=== PATIENT | male | born 1950 | race Caucasian/White ===

== ENCOUNTER 2024-10-19 06:53 | Emergency (ER) | payer MEDICARE, OTHER, SELFPAY ==
[2024-10-19 06:55] VITALS: BP 160/73; PULSE 50; RESP 16; TEMP 36.9; O2SAT 100; BMI 27.1
[2024-10-19 06:58] VITALS: O2SAT 98
--- NOTE | 2024-10-19 07:09 | CT_ITS ---
PROCEDURE: SPINE CERVICAL WITHOUT CONTRAS 10/19/2024 REASON FOR EXAM: FALL TECHNIQUE: Cervical spine CT without contrast. Coronal and Sagittal reconstruction series were provided. One or more dose reduction techniques were used (e.g., Automated exposure control, adjustment of the mA and/or kV according to patient size, use of iterative reconstruction technique COMPARISON: None FINDINGS: Alignment: Straightening of the cervical lordosis. Grade 1 anterolisthesis C5 on C6. Atlantoaxial interval is maintained. Vertebrae: Vertebral body heights are maintained. Mild multilevel loss of disc spaces throughout the cervical spine. Nondisplaced acute-subacute transverse fracture, involving the left lamina at C6 (series 5, image 86, series 602, image 42). Additionally, there is a mildly displaced acute-subacute comminuted fracture of the left C7 transverse foramina and pedicle (series 5 images 91-97). Hyperdensity along the ventral epidural space at C5-C6 (series 6, image 87, series 602, image 33), is indeterminate, but may represent hematoma in the setting of recent fractures. Multilevel degenerative changes, with up to moderate canal stenosis and severe neural foraminal narrowing, most prominent at C6-C7. Soft Tissues: Soft tissues of the neck are within normal limits. CT/Spine Cervical without Contras IMPRESSION: 1. Nondisplaced-mildly displaced acute-subacute fractures of the left C6 lamina and left C7 transverse foramina and pedicle. 2. Hyperdensity at the ventral epidural space at C5-C6, concerning for ventral epidural hematoma. Recommend further evaluation with MRI of the cervical spine. Reading Location: [facility]
--- NOTE | 2024-10-19 07:09 | CT_ITS ---
PROCEDURE: CHEST WITHOUT CONTRAST 10/19/2024 REASON FOR EXAM: FALL OFF HORSE, UPPER BACK PAIN TECHNIQUE: Chest CT without contrast. Coronal and Sagittal reconstruction series were provided. One or more dose reduction techniques were used (e.g., Automated exposure control, adjustment of the mA and/or kV according to patient size, use of iterative reconstruction technique COMPARISON: None FINDINGS: Examination is partially degraded by motion. Hardware: None Lymph nodes: No suspicious adenopathy. Heart and Vasculature: Mild cardiomegaly. Severe coronary artery calcifications. Atherosclerotic calcifications of the thoracic aorta. Thoracic aorta and pulmonary arteries have normal contours; noncontrast technique limits evaluation. Coronary Artery Calcifications: Present Lungs and Airways: Central airways are patent without endobronchial lesions. Patchy opacities in the lung base, compatible with atelectasis. Otherwise, no focal consolidation. No suspicious pulmonary nodules. No pneumothorax. No pleural effusion. Mediastinum:: Thyroid gland is unremarkable. Small hiatal hernia. Upper Abdomen: Unremarkable Bones: Nonflow-displaced fractures of the C5 lamina and C6 transverse foramina and pedicle. Soft tissue: No focal soft tissue abnormality. CT/Chest without Contrast IMPRESSION: No acute findings in the thorax. Nondisplaced-mildly displaced fractures at C5-C6 as described above. Recommend further evaluation with CTA of the neck to rule out vascular injury. Reading Location: [facility]
--- NOTE | 2024-10-19 07:09 | CT_ITS ---
PROCEDURE: BRAIN/HEAD WITHOUT CONTRAST 10/19/2024 REASON FOR EXAM: FALL TECHNIQUE: Head CT without intravenous contrast. Coronal and Sagittal reconstruction series were provided. One or more dose reduction techniques were used (e.g., Automated exposure control, adjustment of the mA and/or kV according to patient size, use of iterative reconstruction technique. COMPARISON: None FINDINGS: No acute intracranial hemorrhage, mass, mass effect, midline shift or pathologic extra-axial fluid collection. Mild parenchymal atrophy with commensurate increase in CSF containing spaces. Patchy white matter hypodensities, patient demographics favor chronic microvascular ischemic changes. Paranasal sinuses and mastoid air cells are clear. The calvarium is grossly intact. CT/Brain/Head without Contrast IMPRESSION: No acute intracranial abnormality. Chronic microvascular ischemia and involutional changes. Reading Location: [facility]
--- NOTE | 2024-10-19 07:10 | EX.ED.GENINJ ---
HPI History of Present Illness Chief Complaint: Trauma Detail of Chief Complaint: Follow-up course with upper back pain Informant: patient Narrative Narrative: Patient presents to the emergency department with complaint of upper back pain after being bucked off of a horse yesterday. Patient states he rides horses daily. He was not wearing a helmet. He did strike his head but no loss of consciousness. Complains of severe pain with standing in the upper back. Denies chest pain or shortness of breath. Denies paresthesias or weakness in the extremities. He has been ambulatory. He has had no vomiting. Denies shortness of breath. He is not anticoagulated. No significant medical history PFSH PFSH Home Medications ?Medication ?Instructions ?Recorded ?Last Taken ?Type NK 10/19/24 Unknown History Allergy/AdvReac Type Severity Reaction Status Date / Time acetaminophen AdvReac hypertensio Verified 10/19/24 06:55 n Surgical History (Updated 10/19/24 @ 06:58 by Adelaida Lynne) Hx of appendectomy Hx of bilateral hip replacements Social History Smoking Status: Never smoker ROS ROS ED Review of Systems ROS Unobtainable: other Constitutional Constitutional ED: Reports lethargy; Denies chills, fever(s), sweats or weight loss Eyes Eyes: Denies blurry vision, change in vision or diplopia ENT ENT ED: Denies rhinorrhea or sore throat Cardiovascular Cardiovascular: Denies chest pain, orthopnea or racing heartbeat Respiratory/Chest Respiratory/Chest: Denies cough, dyspnea, dyspnea on exertion, orthopnea or sputum Gastrointestinal Gastrointestinal: Denies abdominal pain, diarrhea, nausea or vomiting Genitourinary Genitourinary ED: Denies dysuria, hematuria or urinary frequency Musculoskeletal Musculoskeletal: Reports back pain; Denies arthralgias, myalgias or neck pain Integumentary Denies abscess, Abrasions or rash Neurologic Neurologic: Denies headache(s) or weakness Psychiatric Psychiatric: Denies anxiety, depression or suicidal thoughts Endocrine Endocrinology: Denies polydipsia, polyphagia or polyuria Hematologic/Lymphatic Hematologic/Lymphatic: Denies easy bleeding, easy bruising or lymphadenopathy Allergic/Immunologic Allergic/Immunologic ED: Denies mouth swelling, tongue swelling or urticaria EXAM Physical Exam Const Vital Signs: 10/19/24 06:55 10/19/24 06:58 Temperature 98.4 F Temperature Source Oral Pulse Rate 50 L Respiratory Rate 16 Respiratory Effort Normal Non-Labored Respiratory Depth Normal Respiratory Pattern Normal Blood Pressure 160/73 H Blood Pressure Mean 102 Pulse Ox 100 98 Oxygen Delivery Method Room Air Room Air Positive well nourished and well developed General Appearance ED: well developed and NAD HEENT Reports TM's clear and moist mucous membranes HEENT Narrative: Abrasion to right side of frontal scalp. No bony step-offs or depressions. No hematoma. normocephalic; Negative for trauma or tenderness Tympanic Membrane ED: Yes TM's clear Eyes PERRL and EOMs intact bilaterally General Eye ED: Negative for pale conjunctiva or scleral icterus Neck no lymphadenopathy, supple and no JVD Neck Narrative: Mild diffuse tenderness over the C-spine with tenderness over the lower cervical paraspinal musculature bilaterally. Good range of motion. No bony step-offs or depressions. General: tenderness Chest Wall inspection of chest normal and palpation of chest normal Chest: Negative for tenderness Resp normal respiratory effort and clear to auscultation bilaterally Effort and Inspection: Negative for respiratory distress or pain with movement Auscultation: Negative for rhonchi, wheezes or diminished lung sounds Cardio regular rate, regular rhythm, S1 normal heart sound, S2 normal heart sound and no murmurs Peripheral Pulses: pulses 2+ throughout GI normal to inspection, nondistended, normoactive bowel sounds, soft to palpation, non-tender, non-distended and no masses Back/Spine no CVA tenderness and no thoracic nor lumbar tenderness Back/Spine Narrative: Mild diffuse tenderness over the upper thoracic spine with tenderness over bilateral trapezii. Tenderness over bilateral upper thoracic paraspinal musculature. Again no ecchymosis or bruising noted. No bony step-offs. Extremity normal to inspection General Extremety ED: Negative for edema General Extremity: Negative for edema Neuro oriented x3, CN's II-XII intact bilaterally, no sensory deficits noted and gait normal Sensorium / Orientation: awake, alert, oriented to person, oriented to place and oriented to time Motor Exam: strength 5/5 throughout and strength abnormal Psych mental status grossly normal Skin no rashes or lesions noted and no wounds MDM MDM MDM Narrative Medical decision making narrative: Patient presents with trauma that occurred last evening. Fell off a horse. Complaining of upper back pain. No radiculopathy type symptoms. Clinically looks well with GCS 15. Patient had a CT scan of the brain without contrast given the abrasion to the head and the mechanism of injury and this was negative for skull fracture or intracranial hemorrhage. Patient had a CT of the cervical spine that showed fractures of C6 lamina and left C7 transverse foramina and pedicle. There was a hyperdensity at the ventral epidural space at C5-6 concerning for ventral epidural hematoma and recommended further evaluation with MRI and CTA to rule out vascular injury. Patient was placed in a c-collar. Discussed results with patient and his . Recommended transfer to a trauma center given the findings. IV line was established and ordered CBC with differential that showed a white count 11.9 with hemoglobin 14.6 and platelet count of 254. Chemistries are pending. Discussed case with Dr. Suarez at [facility] who accepted transfer of patient to their facility for further imaging and definitive care. He will be transferred via EMS given findings do not want him ambulating or moving significantly to cause further injury. Lab Data Attestation: I reviewed the patient's lab results. Labs: Laboratory Results - last 24 hr 10/19/24 08:14 WBC 11.9 H RBC 5.01 Hgb 14.6 Hct 43.3 MCV 86.4 MCH 29.1 MCHC 33.7 RDW Std Deviation 45.4 H RDW Coeff of Sylvia 14.4 Plt Count 254 MPV 9.5 Immature Gran % (Auto) 0.300 Neut % (Auto) 85.0 H Lymph % (Auto) 8.6 L [place] % (Auto) 5.5 Eos % (Auto) 0.3 Baso % (Auto) 0.3 Absolute Neuts (auto) 10.1 H Absolute Lymphs (auto) 1.03 Nucleated RBC % 0 PT 14.4 INR 1.1 APTT 25.1 Sodium 137 Potassium 4.4 Chloride 101 Carbon Dioxide 24.8 Anion Gap 11 BUN 16 Creatinine 0.85 Estim Creat Clear Calc 83.69 Est GFR (MDRD) Non-Af 91 BUN/Creatinine Ratio 18.4 Glucose 108 H Calcium 9.4 Radiography Diagnostic Testing: Clinical Impression(s) from Imaging Studies Brain CT 10/19/24 07:09 IMPRESSION: No acute intracranial abnormality. Chronic microvascular ischemia and involutional changes. Reading Location: [facility] Cervical Spine CT 10/19/24 07:09 IMPRESSION: 1. Nondisplaced-mildly displaced acute-subacute fractures of the left C6 lamina and left C7 transverse foramina and pedicle. 2. Hyperdensity at the ventral epidural space at C5-C6, concerning for ventral epidural hematoma. Recommend further evaluation with MRI of the cervical spine. Reading Location: [facility] Chest CT 10/19/24 07:09 IMPRESSION: No acute findings in the thorax. Nondisplaced-mildly displaced fractures at C5-C6 as described above. Recommend further evaluation with CTA of the neck to rule out vascular injury. Reading Location: [facility] Discharge Plan Triage Chief Complaint: Trauma ED Provider: Leonardo Moreno Dx/Rx/DC Orders Clinical Impression: Closed head injury, Cervical spine fracture Prescriptions: No Action NK Primary Care Provider: Jovani Julian Referrals: Jovani Julian MD [Primary Care Provider] - Print Language: Sinhala Disposition Disposition: DC/Tx to Another Type of HCF
[2024-10-19 08:24] LABS: Absolute Lymphocyte Count 1.03 X10^3/uL (0.83-4.51); Absolute Neutrophil Count 10.1 X10^3/uL (2.0-7.7); Basophil# 0.04 X10^3/uL; Basophil% 0.3 % (0-1); Eosinophil# 0.03 X10^3/uL; Eosinophils% 0.3 % (0-5); Hematocrit 43.3 % (40-54); Hemoglobin 14.6 g/dL (13.0-16.5); Lymphocyte # 1.03 X10^3/ul (0.83-4.51); Lymphocyte % 8.6 % (19-41); Mean Corp Hgb Conc 33.7 g/dL (32-36); Mean Corpuscular Hgb 29.1 pg (27.0-32.0); Mean Corpuscular Volume 86.4 fL (80-94); Mean Platelet Vol. 9.5 fl (6.2-12.0); Monocyte# 0.65 X10^3/uL; Monocyte% 5.5 % (0-10); NRBC Flagged by Analyzer 0 % (0-5); Neutrophil # 10.13 X10^3/uL (2.7-7.7); Platelet Count 254 K/mm3 (150-450); RBC Distribution Width CV 14.4 % (11.6-14.6); RBC Distribution Width SD 45.4 fl (35.1-43.9); Red Blood Count 5.01 M/mm3 (4.6-6.2); White Blood Count 11.9 K/mm3 (4.4-11.0)
[2024-10-19 08:46] LABS: International Normalized Ratio 1.1; Prothrombin Time (Protime)PT. 14.4 SECONDS (11.7-14.9)
[2024-10-19 08:47] LABS: Partial Thromboplast Time 25.1 Seconds (24.1-36.2)
[2024-10-19 08:49] LABS: Anion Gap 11 (5-15); BUN 16 mg/dL (4-19); BUN/Creat Ratio 18.4 RATIO (10-20); Calcium,Total 9.4 mg/dL (7.6-11.0); Carbon Dioxide 24.8 mmol/L (21.0-32.0); Chloride 101 mmol/L (98-108); Creatinine, Serum 0.85 mg/dL (0.70-1.20); EST Glomerular Filtration Rate 91 (>60); Estimated Creatinine Clearance 83.69 ml/min (50-250); Glucose 108 mg/dL (70-99); Potassium 4.4 mmol/L (3.3-5.1); Sodium Level 137 mmol/L (133-145)
[2024-10-19 09:11] VITALS: BP 152/79; PULSE 48; RESP 14; O2SAT 98
[2024-10-19 09:22] VITALS: BP 152/79; PULSE 48; RESP 15; TEMP 36.6; O2SAT 98
--- NOTE | 2024-10-19 09:30 | CM.ED ---
Social Work Date of referral: 10/19/24 Reason for referral: Trauma Referred by: Social Work Identification Patient provided consent to social work visit. Patient's at bedside. Patient stated he was doing ok and denied the need for any additional support at this time and is ok with the transfer. Patient's requested additional directions to the transferring hospital which manager social provided. No additional needs identified at this time. Danay Arevalo, EDUCATIONAL TECHNOLOGY SPECIALIST, MEDICAL LOGISTICS SPECIALIST
== END 2024-10-19 09:30 | disposition other institution (70) ==
PROVIDERS: Emergency Provider Emergency Medicine; PCP Family Medicine; Visit Provider Emergency Medicine
DX: S09.90XA Unspecified injury of head, initial encounter (principal); S12.9XXA Fracture of neck, unspecified, initial encounter; V80.010A Animal-rider injured by fall from or being thrown from horse in noncollision accident, initial encounter; Z96.643 Presence of artificial hip joint, bilateral; Z90.49 Acquired absence of other specified parts of digestive tract
CPT/HCPCS: 70450; 71250; 72125; 80048; 85025; 85610; 85730; 99284; A4216